=== PATIENT | male | born 1955 | race Caucasian/White ===

== ENCOUNTER → 2020-12-27 | Outpatient (CLI) | payer OTHER ==
[~2020-12-27] VITALS: Ht 170.2 cm; Wt 61.2 kg
[~2020-12-27] MED LIST: ULTRAM 50MG TAB50 MG PO
[2020-12-27 16:33] VITALS: BP 189/102
== END ==
LOC: M.ERS 12:25 → M.ULTRA 12:25
DX: I73.9 Peripheral vascular disease, unspecified (principal)

== ENCOUNTER → 2021-01-17 | Outpatient (CLI) | payer OTHER ==
[2021-01-17 10:43] LABS: HEMATOCRIT 39.3 % (42.0-52.0); HEMOGLOBIN 12.9 gm/dL (14.0-18.0)
== END ==
LOC: M.LAB 10:18
PROVIDERS: ATTEND Surgery Vascular Surgery
DX: I70.213 Atherosclerosis of native arteries of extremities with intermittent claudication, bilateral legs (principal)

== ENCOUNTER 2021-01-22 10:59 | Inpatient (IN) | payer OTHER ==
[~2021-01-22] VITALS: Ht 170.2 cm; Wt 59.0 kg
[2021-01-22 11:10] VITALS: BP 192/95
[2021-01-22 13:54] LABS: ABSOLUTE BASOPHILS 0.1 thou/uL (0.0-0.2); ABSOLUTE EOSINOPHILS 0.4 thou/uL (0.0-0.7); ABSOLUTE LYMPHOCYTES 1.8 thou/uL (0.8-5.3); ABSOLUTE MONOCYTES 0.7 thou/uL (0.0-1.2); ABSOLUTE NEUTROPHILS 7.4 thou/uL (1.6-8.1); BASOPHILS 0.8 %; EOSINOPHILS 3.8 %; HEMATOCRIT 38.1 % (42.0-52.0); HEMOGLOBIN 12.6 gm/dL (14.0-18.0); LYMPHOCYTES 17.2 %; MCH 26.7 pg (26.0-34.0); MCHC 33.1 g/dL (28.0-37.0); MCV 80.8 fL (80.0-100.0); MONOCYTES 6.6 %; MPV 6.3 fl. (7.2-11.1); NUCLEATED RBCS 0 /100WBC; PLATELET COUNT* 469 thou/uL (150-400); POLYS 71.6 %; RBC 4.72 mil/uL (4.50-6.00); RDW-CV 13.2 % (10.5-14.5); WBC 10.4 thou/uL (4.0-11.0)
[2021-01-22 15:05] LABS: APTT 27.4 Seconds (25.0-31.3); PROTIME 11.1 Seconds (9.20-11.50)
[2021-01-22 15:22] VITALS: BP 198/93
[2021-01-22 17:29] LABS: ALBUMIN 2.8 g/dL (3.4-5.0); ALKALINE PHOSPHATASE 97 U/L (46-116); ANION GAP 6 mmol/L (7-16); BUN 17 mg/dL (7-18); CALCIUM 9.3 mg/dL (8.5-10.1); CHLORIDE 102 mmol/L (98-107); CO2 31 mmol/L (21-32); CREATININE 1.1 mg/dL (0.6-1.3); GLUCOSE 96 mg/dL (70-99); POTASSIUM 4.3 mmol/L (3.5-5.1); SGOT 18 U/L (15-37); SGPT 29 U/L (30-65); SODIUM 139 mmol/L (136-145); TOTAL BILIRUBIN 0.3 mg/dL (<0.1-1.0); TOTAL PROTEIN 7.1 g/dL (6.4-8.2); TROPONIN-I LEVEL <0.06 ng/mL (<0.06)
[2021-01-22 18:45] VITALS: BP 143/66
--- NOTE | 2021-01-22 18:49 | NUR ---
PT ALERT AND ORIENTED SITTING IN BED. PT STATES PAIN DECREASED IN FOOT AFTER PAIN MEDICATION GIVEN. IVF REMAIN INFUSING PER ORDER. NO CONCERNS VOICED AT THIS TIME. WILL CONTINUE TO MONITOR.
[2021-01-22 20:00] VITALS: BP 129/81
[2021-01-23 00:31] LABS: URINE BILIRUBIN NEGATIVE (Negative); URINE BLOOD NEGATIVE (Negative); URINE CLARITY CLEAR; URINE COLOR YELLOW; URINE GLUCOSE-RANDOM NEGATIVE (Negative); URINE KETONES NEGATIVE (Negative); URINE LEUKOCYTES-REFLEX NEGATIVE (Negative); URINE NITRITE-REFLEX NEGATIVE (Negative); URINE PROTEIN NEGATIVE (Negative); URINE UROBILINOGEN 0.2 E.U./dl (0.2-1.0)
--- NOTE | 2021-01-23 04:06 | NUR ---
PT A&O X 4. VSS ON RA. MEDS GIVEN ORDERED. PAIN MANAGED WITH FENTANYL. UA, EKG DONE. NPO SINCE MIDNIGHT FOR SURGERY. IVF INFUISING ORDERED. WILL CONTINUE TO MONITOR.
[2021-01-23 06:28] VITALS: BP 129/81
[2021-01-23 09:38] VITALS: BP 118/62
--- NOTE | 2021-01-23 09:44 | NUR ---
PT RETURNED FROM SURGERY. PT ALERT AND ORIENTED. PT EDUCATED ON HIGH FALL RISK PRECAUTIONS. PT DENIES ANY PAIN AT THIS TIME. PT ORIENTED TO ROOM.
[2021-01-23 12:00] VITALS: BP 128/70
--- NOTE | 2021-01-23 12:30 | NUR ---
SPOKE WITH PT. HE WAS ALERT AND ORIENTED. HE STATED HE LIVES ALONE. NO USE OF DME. NO HX OF HH OR SNF. HE WORKS OUTSIDE THE HOME AT HOME [employer]. HE HAD SURGERY THIS AM ON HIS 2ND AND 3RD TOES/PARTIAL AMPUTATIONS. DISCUSSED PLAN OF CARE. HE WILL HAVE PT/OT AND BE NON WT.BEARING ON HIS RIGHT FOOT. DISCUSSED CX TAKEN DURING SURGERY AND THEY WOULD TAKE AT LEAST 48 HRS TO GET THEM BACK. DEPENDING ON WHAT THEY GREW OUT, WOULD DETERMINE WHAT ANTIBIOTIC HE WOULD BE ON. WORSE CASE SCENARIO WOULD BE HOME WITH OUTPT.IV ANTIBIOTICS. HE WILL HAVE ID CONSULT. HE FEELS HE COULD LEARN TO DO IVAB AT HOME IF NEEDED. HE SAID HIS BROTHER COULD HELP HIM. ALSO WOULD NEED DRESSING CHANGES AND OR WOUND CARE CENTER FOLLOW UP WITH . TOLD HIM WE WOULD DISCUSS AGAIN TOMORROW.
--- NOTE | 2021-01-23 16:08 | NUR ---
PT REMAINED ALERT AND ORIENTED. PT RESTING IN BED. PODIATRY WANTS TO PT TO STAY IN BED MOSTLY, ONLY AMBULATING WHEN NEEDING TO GO TO THE BATHROOM. PAIN MEDS GIVEN ORDERED. FALL RISK PRECAUTIONS IN PLACE. HOURLY ROUNDING COMPLETED.
[2021-01-23 16:12] VITALS: BP 124/52
--- NOTE | 2021-01-23 17:36 | EKG ---
[place] [address] ELECTROCARDIOGRAM REPORT Name: MELISSATONO D Room: [address] ADM IN M.R.#: [id number] Admission: 01/22/21 Attend Phys: Ilan Staton Discharge: Date of : 57 Date of Service: 01/23/21 0345 Report #: [id number] THIS REPORT FOR: //name// [facility] Test Date: 2021-01-23 Test Time: 03:45:27 Pat Name: TONO TORRES Department: Room: [address] Gender: M Caseworker: BXIONG : 1955 Requested By: Ilan Bowens Order Number: [id number] González MD: Christian Garsia Measurements Intervals [place] Rate: 65 P: 50 MT: 183 QRS: 80 QRSD: 104 T: 74 QT: 440 QTc: 458 Interpretive Statements Sinus rhythm Minimal ST elevation, anterior leads No previous ECG available for comparison Electronically Signed On 01-23-2021 17:36:02 CDT by Christian Garsia [email or web address] <ELECTRONICALLY SIGNED> By: Christian Garsia MD, [facility] 01/23/21 1736 0345 0345 Christian Garsia MD, [facility] /EPI
[2021-01-23 20:50] VITALS: BP 117/59
[2021-01-24 00:16] VITALS: BP 129/65
[2021-01-24 07:25] VITALS: BP 126/69
--- NOTE | 2021-01-24 07:37 | OP ---
[facility] [address] [place] [address] OPERATIVE REPORT Name: TONO TORRES Room: [address] IN .R.#: [id number] Admission: 01/22/21 Attend Phys: Ilan Bowens, Discharge: Date of : 57 Report #: [id number] THIS REPORT FOR: cc: FAM - No family physician/PCP FAM - No family physician/PCP ~ Nancy Kern DPM DATE OF SERVICE: 01/22/2021 PREOPERATIVE DIAGNOSIS: Gangrene, right foot and ulceration, right hallux, full thickness. POSTOPERATIVE DIAGNOSES: 1. Gangrene, right foot and ulceration, right hallux, full thickness. 2. Ulceration, second toe, right foot, partial thickness. PROCEDURE PERFORMED: 1. Partial amputation, right hallux. 2. Partial amputation, right third toe. 3. Debridement of ulcerations to right hallux and second toe. PATHOLOGY: Hallux and third toe were sent for gross pathology and deep tissue culture was also taken of the right hallux. ANESTHESIA: General with local. HEMOSTASIS: Compression only. ESTIMATED BLOOD LOSS: 5 mL. MATERIALS USED: 2-0 Vicryl and 4-0 nylon. INJECTABLES: 20 mL of 1:1 mixture of 0.5% Marcaine plain and 1% lidocaine plain. COMPLICATIONS: None. DESCRIPTION OF PROCEDURE IN DETAIL: The patient was brought into the operating room and placed on the operating table in the supine position. A pneumatic ankle tourniquet was then placed about the patient's right ankle with adequate padding noted. The patient's right foot was then scrubbed, prepped and draped in the usual aseptic manner. A local timeout was also performed at this time with all personnel present and in agreement. At this time, the right foot was then locally anesthetized utilizing 20 mL of 1:1 mixture of 0.5% Marcaine plain and 1% lidocaine plain. Next, first debridement of ulcerations to the first and third digit was performed at this time utilizing a #15 [place] [address] OPERATIVE REPORT Name: TONO TORRES Room: [address] IN [facility]#: [id number] Admission: 01/22/21 Attend Phys: Ilan Bowens, Discharge: Date of : 57 Report #: [id number] of subcutaneous tissue. There was a fibrotic and granular mixed tissue noted to ulceration to the dorsum of the right hallux at the level of the interphalangeal joint. Ulceration post-debridement was noted to be 2 cm x 1.3 cm x 0.1 cm. Predebridement measurements were 2.5 x 1.3 x 0.1 cm. Ulceration was noted to have bleeding to wound bed upon debridement at this time. Next, attention was then directed to the ulceration to the dorsum of the right third toe, which upon debridement did not show any signs of bleeding. It was fibrotic. There was also blistering throughout the distal aspect of the patient's right foot and the nail was noted to be lytic and not attached to the nail bed. Upon debridement of the skin of this tissue, underlying tissue was noted to be sierra, cold and without capillary refill at this time. So it was at this time, it was decided that the distal aspect of the right third toe was nonviable. Attention was then redirected to the patient's right hallux toe where a fishmouth incision was made with a #15 blade to the level of the interphalangeal joint. Incision was brought from the skin down to the level of bone and the toe was then disarticulated at the interphalangeal joint at this time and passed from the operative field for pathology. It is important to note that prior to disarticulation of the digit, palpation and examination of the gangrenous changes to the right hallux toe did reveal some mild pustular drainage and malodor to the lateral aspect of the right hallux and at that time, a culture of this pustular exudate was taken and sent for Gram stain, aerobic and anaerobic. After disarticulation of the right hallux toe, bone quality was noted to be adequate without signs of osteomyelitis or degeneration. Skin edges were noted to be adequately bleeding at this time as well as the deep soft tissue. There were no signs of deep infection or residual infection to the soft tissues at this level. Next, the head of the proximal phalanx was resected utilizing a sagittal saw transversely at the level of the neck to decrease tension to the remaining skin tissue at this time. This was also sent for gross pathology with the remainder of the hallux. Next, any soft tissue that could be possible infectious agent was also removed at this time. Right hallux toe was noted to be adequately bleeding throughout remaining tissues and were noted to be viable. Attention was then directed to the third toe where a fishmouth incision was made with a #15 blade down to the level of the bone and capsule. Toe was disarticulated initially at the distal interphalangeal joint; however, was noted to have viable tissue at this level. Therefore, the toe was then disarticulated with a similar technique to the level of the proximal interphalangeal joint and further skin resection was also done at this time until there was some bleeding noted to the surrounding skin and soft tissue. At this time, the head of the proximal phalanx was also resected again to allow for tissue closure with decreased tension to the site. Both surgical sites were copiously irrigated at this time, first with saline impregnated with bacitracin, and next with sterile normal saline at this time. Again, bleeding was noted to the remainder sites and the skin was noted to be viable. So at this time, [place] [address] OPERATIVE REPORT Name: TONO TORRES Room: [address]#: [id number] Admission: 01/22/21 Attend Phys: Ilan Bowens, Discharge: Date of : 57 Report #: [id number] reapproximated utilizing 2-0 Vicryl and the skin reapproximated with 4-0 nylon in a horizontal stitch fashion to the first and third toes. At this time, there was a blister noted to the lateral aspect of the right second toe. Upon debridement of the blister, there was a superficial ulceration with granular wound base noted at the proximal interphalangeal joint of the second toe, ulceration measured 1 cm x 0.7 cm post-debridement and predebridement. The patient's right foot was then cleansed with sterile normal saline and dressed with Betadine-soaked Adaptic, 4 x 4 gauze, Kerlix and a very loosely compressive Evan bandage at this time. The patient tolerated the procedure and anesthesia well and was transported from the operating room to the recovery room with vital signs stable and neurovascular status intact to the right lower extremity. The patient is allowed limited weightbearing in surgical shoe only and pain medications were given at this time. <ELECTRONICALLY SIGNED> By: Nancy Kern DPM 01/24/21 0737 2310 0016Nancy Kern DPM /nt
[2021-01-24 10:12] LABS: HEMOGLOBIN 10.9 gm/dL (14.0-18.0); MCHC 33.1 g/dL (28.0-37.0); MCV 81.4 fL (80.0-100.0); MPV 6.3 fl. (7.2-11.1); RBC 4.06 mil/uL (4.50-6.00); RDW-CV 13.3 % (10.5-14.5); WBC 9.6 thou/uL (4.0-11.0)
[2021-01-24 10:58] LABS: ALBUMIN 2.4 g/dL (3.4-5.0); CALCIUM 8.5 mg/dL (8.5-10.1); POTASSIUM 4.2 mmol/L (3.5-5.1); TOTAL BILIRUBIN 0.2 mg/dL (<0.1-1.0); TOTAL PROTEIN 5.8 g/dL (6.4-8.2)
--- NOTE | 2021-01-24 16:06 | NUR ---
PT REMAINED ALERT AND ORIENTED. PT RESTING IN BED AND UP TO CHAIR DURING DAY. PAIN MEDS GIVEN ORDERED. FALL RISK PRECAUTIONS IN PLACE. ORTHO SHOE IN ROOM. HOURLY ROUNDING COMPLETED.
[2021-01-24 16:30] VITALS: BP 141/77
[2021-01-24 19:32] VITALS: BP 131/72
[2021-01-24 23:15] VITALS: BP 154/76
--- NOTE | 2021-01-25 04:23 | NUR ---
PT A&OX4, VSS ON ROOM AIR, IV FLUIDS INFUSING ORDERED, PAIN MEDS REQUESTED AND GIVEN ORDERED, PT HAS BEEN SLEEPING WELL. WILL CONTINUE TO MONITOR.
[2021-01-25 04:25] LABS: HEMATOCRIT 33.3 % (42.0-52.0); MCH 26.7 pg (26.0-34.0); MCHC 33.2 g/dL (28.0-37.0); MCV 80.5 fL (80.0-100.0); MPV 6.7 fl. (7.2-11.1); RBC 4.13 mil/uL (4.50-6.00); RDW-CV 13.3 % (10.5-14.5); WBC 7.7 thou/uL (4.0-11.0)
[2021-01-25 04:29] VITALS: BP 160/72
[2021-01-25 07:05] VITALS: BP 135/70
[2021-01-25 08:42] VITALS: BP 135/70
[2021-01-25] MEDS ORDERED: PERCOCET PO (09:23)
[2021-01-25 13:25] VITALS: BP 135/70
--- NOTE | 2021-01-25 14:07 | PATH ---
[facility] [address] [place] [address] PATHOLOGY RPT PROCEDURE Name: TONO YANG Room: [address] IN .R.#: [id number] Admission: 01/22/21 Date of : 57 Discharge: Report #: [id number] Path Case #: [id number] [facility] Accession Number: [id number] . 01 Material submitted: . toe - RIGHT GREAT TOE AND RIGHT THIRD TOE. Modifiers: right, great, third . 01 Clinical history: . INCISION AND DRAINAGE AMPUTATION GANGRENE OF RIGHT GREAT TOE, GANGRENE OF RIGHT THIRD TOE ULCERATION TO RIGHT HALLUX AND RIGHT SECOND TOE . 02 Diagnosis: Right great toe and right third toe: - Benign right great toe with nonspecific ulceration and acute inflammation and necrosis of underlying soft tissue and phalangeal bone, with viable and non-inflamed disarticulation margin. - Benign right third toe (with missing nail) showing nonspecific ulceration and acute inflammation of underlying soft tissue and viable and non-inflamed phalangeal bone. - Three separate benign and viable and non-inflamed osteocartilaginous segments. (LULÚ:pit 01/25/2021) QTP 01/25/2021 1219 Local . 02 Electronically signed: . Delroy Werner MD, Pathologist NPI- [id number] . 01 Gross description: . The specimen is received in formalin, labeled "Tono Yang, gangrene R great toe and R third toe". Received are two partial amputated digits measuring 3.7 x 3.2 x 2.5 and 1.7 x 1.5 x 1.2 cm in greatest dimensions. The bone margins are smooth and concave in appearance, consistent with disarticulation. The bone and soft tissue margins are inked black. On the larger toe, the nail is present displaying a pale agarwal and grossly unremarkable appearance. The distal and plantar aspect of the specimen displays a blue-purple appearance. On the smaller toe, the nail is absent. The epidermal surface is dusky pink-agarwal in appearance. The specimen is submitted representatively as follows: . A1 full-thickness longitudinal cross-section through larger toe, following decalcification A2 full-thickness longitudinal cross-section through smaller toe, following decalcification. . Also received within the specimen container are three [place] [address] PATHOLOGY RPT PROCEDURE Name: TONO YANG Room: [address] IN .R.#: [id number] Admission: 01/22/21 Date of : 57 Discharge: Report #: [id number] Path Case #: [id number] of bone, two of which display one blunt, transected margin and one smooth, convex disarticulated margin and the other of which displays one smooth, convex and one smooth, concave disarticulation margin ranging in size from 1.0 x 0.8 x 0.6 to 2.2 x 1.4 x 1.4 cm in greatest dimensions. The disarticulated margins on two segments and the disarticulated concave margin on the third segment are inked black. The specimen is submitted representatively in cassettes A3 and A4, following decalcification. (CAA; 01/24/2021) QAC/QAC 01/25/2021 1217 Local . 02 Pathologist provided ICD-10: L97.519, I96 . 02 CPT . 101007, 258043, 645841 Specimen Comment: A courtesy copy of this report has been sent to [phone], [phone] Specimen Comment: 0054 Specimen Comment: Report sent to / DR GOINS Performed at: 01 [facility] [address], [place] [id number] MD Miguel Ángel Dawson MD Phone: [phone] Performed at: 02 [facility] [address] , [place], [place] [id number] MD Delroy Werner MD Phone: [phone]
--- NOTE | 2021-01-25 15:05 | NUR ---
[facility]: Patient discharging to home. Discussed benefits of home health as he is now walking differently after his partial toe amputations. He said he does not want HH as his place is really dirty and probably has dog poop all around inside because he was feeling too bad to get it out and that he lives in a mobile home with a [address]. He does not have a PCP, but had a name of one he wanted in [place]. We went ahead and called doctor as he will need a PCP anyway. Podiatry handling foot dressings and dressing to stay on for 10 days. At first thought IV antbx at home but only PO now. Discussed his getting home and opal having a need for HH and with PCP in place could call for him to order this. He has son and daughter helping him out with his care and has food enough and they will get as needed. Seems safe. He has [facility] phone numbers as well as my cell phone number should he need the HH help.
[2021-01-25 17:16] VITALS: BP 201/88
--- NOTE | 2021-01-25 17:29 | NUR ---
PT GIVEN DSICHARGE INFORMATION, CARE NOTES, AND PRESCRIPTIONS. ANTIBIOTICS CALLED INTO PHARMACY. IV REMOVED. FALL RISK PRECAUTIONS IN PLACE. HOURLY ROUNDING COMPLETED. PT LEFT VIA WHEELCHAIR WITH NURSING STAFF TO HOME WITH HOME HEALTH.
[2021-01-25 17:36] VITALS: BP 154/62
== END 2021-01-25 17:37 | disposition home health service (06) | DRG 256 ==
LOC: M.ERS 10:59 → M.ORTHSURG 13:36 → M.TBA-ER 13:36 → M.ORTHSURG 15:53
PROVIDERS: Emergency Medicine; Internal Medicine; Podiatrist; ADMIT Family Medicine; ATTEND Family Medicine
DX: I70.261 Atherosclerosis of native arteries of extremities with gangrene, right leg (principal); E44.0 Moderate protein-calorie malnutrition; F17.210 Nicotine dependence, cigarettes, uncomplicated; L97.513 Non-pressure chronic ulcer of other part of right foot with necrosis of muscle; I10 Essential (primary) hypertension; Z20.822 Contact with and (suspected) exposure to COVID-19; Z79.899 Other long term (current) drug therapy; Z68.20 Body mass index [BMI] 20.0-20.9, adult